=== PATIENT | male | born 1955 | race Caucasian/White ===

== ENCOUNTER 2024-04-12 11:45 | Observation (INO) ==
--- NOTE | 2024-03-14 13:57 | PAT Medication Instructions ---
Medication Instructions Date of Service March 14, 2024 Home Medications ascorbic acid (vitamin C) 500 mg tablet (Vitamin C) 500 mg PO QAM atorvastatin 80 mg tablet 80 mg PO UD glipizide 10 mg tablet 20 mg PO QAM lisinopril 20 mg tablet 20 mg PO QAM magnesium oxide 400 mg PO WK metformin 1,000 mg tablet 1,000 mg PO BID omega-3 acid ethyl esters 1 gram capsule (Lovaza) 2 g PO BID tramadol 50 mg tablet 50 mg PO BID PRN Pain vitamin B12 500 mcg-folic acid 400 mcg tablet 1 tab PO DAILY Continue as directed atorvastatin 80 mg tablet 80 mg PO UD STOP taking 2 weeks before surgery (or as soon as possible if surgery is within 2 weeks) omega-3 acid ethyl esters 1 gram capsule (Lovaza) 2 g PO BID DO NOT take the morning of surgery ascorbic acid (vitamin C) 500 mg tablet (Vitamin C) 500 mg PO QAM glipizide 10 mg tablet 20 mg PO QAM lisinopril 20 mg tablet 20 mg PO QAM magnesium oxide 400 mg PO WK metformin 1,000 mg tablet 1,000 mg PO BID vitamin B12 500 mcg-folic acid 400 mcg tablet 1 tab PO DAILY Take morning of surgery With a small sip of water, OTHERWISE NOTHING TO EAT OR DRINK AFTER MIDNIGHT: tramadol 50 mg tablet 50 mg PO BID PRN Pain (if needed) Take evening before surgery metformin 1,000 mg tablet 1,000 mg PO BID tramadol 50 mg tablet 50 mg PO BID PRN Pain (if needed) Other Notes If you have any questions please call us at [phone] or [phone] or [phone] or [phone]
--- NOTE | 2024-03-27 11:01 | Anesthesiology Consultation ---
Date of Service March 27, 2024 Assessment & Plan (1) Encounter for pre-operative examination: - check BSG am DOS. - awaiting patient reported upcoming PCP pre-operative evaluation 04/03/24, [facility] Jaylen Gómez. Chart Review Chart Review: Pending: Refer to Additional Notes / Consult section and Patient seen in Pre Admission Testing Teaching & Discussion Pre-Anesthesia Teaching/Discussion Notes: Instructed NPO after midnight before surgery, except medications with 15 cc of water. Medication instructions provided according to the PAT guidelines. History Surgery Operation Date: 04/10/24 09:05 Proposed Procedures p Left Total Shoulder Arthroplasty with - Aftab Malhotra MD s Possible Rotator Cuff Repair with [employer] Implant, Subacromial Decompression, Distal Clavicle Excision Biceps Tenodesis - Aftab Malhotra MD Height/Weight Height: 5 ft 5.5 in Weight: 80.9 kg Allergies Allergy/AdvReac Type Severity Reaction Status Date / Time No Known Allergies Allergy Verified 03/11/24 10:59 Medications Home Medications Medication Instructions Recorded Confirmed Last Taken ascorbic acid (vitamin C) 500 mg 500 mg PO QAM 03/11/24 03/11/24 Unknown tablet (Vitamin C) atorvastatin 80 mg tablet 80 mg PO UD 03/11/24 03/11/24 Unknown glipizide 10 mg tablet 20 mg PO QAM 03/11/24 03/11/24 Unknown lisinopril 20 mg tablet 20 mg PO QAM 03/11/24 03/11/24 Unknown magnesium oxide 400 mg PO WK 03/11/24 03/11/24 Unknown metformin 1,000 mg tablet 1,000 mg PO BID 03/11/24 03/11/24 Unknown omega-3 acid ethyl esters 1 gram 2 g PO BID 03/11/24 03/11/24 Unknown capsule (Lovaza) tramadol 50 mg tablet 50 mg PO BID PRN Pain 03/11/24 03/11/24 Unknown vitamin B12 500 mcg-folic acid 400 1 tab PO DAILY 03/11/24 03/11/24 Unknown mcg tablet Past Medical History Medical History (Updated 03/27/24 @ 11:12 by Kathie Stein PA-C) Arthritis of left shoulder Diabetes mellitus NIDDM Hx of renal calculi (2020) x2, had cysto/stent Hyperlipidemia Hypertension controlled, stable per pt Patient denies h/o stroke, seizures, heart attack, heart failure, blood clots/DVTs or blood transfusions. Exercise / Class Metabolic Activity III < 4 Walking/Shop/Light housework (denies chest discomfort or shortness of breath with usual activities) Past Surgical History Surgical History Hx of colonoscopy Hx of shoulder surgery (1993) left shoulder, torn rotator cuff S/P cystoscopy with ureteral stent placement (2020) - [facility] - dr. lopez in [place], [place] Past Anesthesia History No Hx of Anesthesia Complications and No Family Hx of Anesthesia Complications History of PONV No Hx of PONV and No Hx of Motion Sickness Social History Smoking Status: Never smoker Do You Dip or Chew Tobacco: No Hx Alcohol Use: No Hx Substance Use: No substance use type: does not use Review of Systems Snoring, denies witnessed apneas. Patient denies chest pain, shortness of breath, dyspnea on exertion, reflux, fever, chills, cough, wheezing, or palpitations. Physical Exam Vital Signs Vitals BP 152/90 P 68 TEMP 98.3 SP02 97% on RA RESP 18 Physical Patient resting comfortably in chair in no acute distress, alert and oriented, responding appropriately throughout visit Full cervical extension range of motion without pain TMD 3.5 finger breadths Mallampati Score 3 Dentition: intact, denies chipped or loose teeth, caps/crowns, implants or bridges Lungs: normal respiratory effort. Good air movement, clear throughout to ausc ultation, no adventitious breath sounds Cardiac: regular rate and rhythm, no murmurs noted Carotid arteries: negative bruit bilat Lab Results Anesthesia Preop Results Results Anesthesia Widget: WBC 5.65 K/ul (4.8-10.8) 03/27/24 Hgb 14.7 g/dl (14.0-18.0) 03/27/24 Hct 43.6 % (42.0-52.0) 03/27/24 Plt 275 K/uL (130-400) 03/27/24 Na 140 mmol/L (136-145) 03/27/24 K 3.9 mmol/L (3.5-5.1) 03/27/24 Cl 105 mmol/L (98-107) 03/27/24 CO2 27 mmol/L (21-32) 03/27/24 BUN 15 mg/dl (6-23) 03/27/24 Creat 0.93 mg/dl (0.6-1.4) 03/27/24 Glucose Level 139 mg/dl (70-99(Fasting)) H 03/27/24 PT 11.1 Seconds (9.0-12.0) 03/27/24 PTT 26 Seconds (21-31) 03/27/24 INR 1.0 (0.9-1.1) 03/27/24 HA1c 6.8 % (4.5-5.6) H 03/27/24 Urine Color Edgar 03/27/24 Urine Appearance Clear (Clear) 03/27/24 Urine pH 6.0 (4.5-7.5) 03/27/24 Urine Specific Munson 1.019 (1.000-1.030) 03/27/24 Urine Protein Trace (Negative) H 03/27/24 Urine Glucose (UA) Negative (Negative) 03/27/24 Urine Ketones Negative (Negative) 03/27/24 Urine Blood Trace (Negative) H 03/27/24 Urine Nitrite Negative (Negative) 03/27/24 Urine Bilirubin Negative (Negative) 03/27/24 Urine Urobilinogen Negative (Negative) 03/27/24 Urine Leukocyte Esterase Negative (Negative) 03/27/24 Urine WBC (Auto) 0-5 /hpf (0-5) 03/27/24 Urine RBC (Auto) 0-2 /hpf (0-2) 03/27/24 Urine Hyaline Casts (Auto) 0-2 /lpf (0-2) 03/27/24 Urine Epithelial Cells (Auto) 0-2 /hpf (0-2) 03/27/24 Urine Bacteria (Auto) None Seen (None Seen) 03/27/24 Blood Type O Positive 03/27/24 Antibody Screen NEGATIVE 03/27/24 Testing Electrocardiogram Date: 03/27/24 NSR, rate 68 bpm Chest X-Ray Date: 03/27/24 No acute chest disease.
--- NOTE | 2024-04-09 21:35 | History & Physical Report ---
Date of Service April 09, 2024 Assessment & Plan (1) Osteoarthritis of left glenohumeral joint: Plan: Patient has severe left shoulder glenohumeral osteoarthritis with bone loss. In addition has relatively minor tendinopathy of the rotator cuff post previous rotator cuff repair with reasonably good rotator cuff strength. Does have subacromial impingement however and arthritis of the AC joint contributing to impingement. Recommendation is at this time is subacromial decompression distal clavicle excision possible addition of a Regeneten bio inductive collagen implant to rotator cuff to reinforce tendon if tendinopathy identified. Total shoulder arthroplasty stemless versus stem depending on bone quality recommended. Biceps tenodesis recommended. (2) Osteoarthritis of left acromioclavicular joint: (3) Subacromial impingement of left shoulder: (4) History of repair of left rotator cuff: History of Present Illness Chief Complaint: Chronic left shoulder pain Primary Care Provider: NO PCP 69-year-old male with chronic left shoulder pain failed conservative management. History of prior successful rotator cuff surgery in the past. Patient denies headaches, sweats, fevers, chills, double vision, blurred vision, cough, sore throat, dysphagia, chest pain, sob, wheezing, n/v/d/c, numbness, tingling, fatigue, urinary symptoms, mood disorders. Allergies Allergy/AdvReac Type Severity Reaction Status Date / Time No Known Allergies Allergy Verified 03/11/24 10:59 Home Medications Medication Instructions Recorded Confirmed Type ascorbic acid (vitamin C) 500 mg 500 mg PO QAM 03/11/24 03/11/24 History tablet (Vitamin C) atorvastatin 80 mg tablet 80 mg PO UD 03/11/24 03/11/24 History glipizide 10 mg tablet 20 mg PO QAM 03/11/24 03/11/24 History lisinopril 20 mg tablet 20 mg PO QAM 03/11/24 03/11/24 History magnesium oxide 400 mg PO WK 03/11/24 03/11/24 History metformin 1,000 mg tablet 1,000 mg PO BID 03/11/24 03/11/24 History omega-3 acid ethyl esters 1 gram 2 g PO BID 03/11/24 03/11/24 History capsule (Lovaza) tramadol 50 mg tablet 50 mg PO BID PRN Pain 03/11/24 03/11/24 History vitamin B12 500 mcg-folic acid 400 1 tab PO DAILY 03/11/24 03/11/24 History mcg tablet Past Med/Surg History Problem List (Updated 04/09/24 @ 21:41 by Aftab Malhotra MD) History of repair of left rotator cuff Subacromial impingement of left shoulder Osteoarthritis of left acromioclavicular joint Osteoarthritis of left glenohumeral joint Encounter for pre-operative examination Medical History Hx of renal calculi (2020) x2, had cysto/stent Arthritis of left shoulder Hyperlipidemia Hypertension controlled, stable per pt Diabetes mellitus NIDDM Surgical History S/P cystoscopy with ureteral stent placement (2020) x2- [facility] - dr. lopez in [place], [place] Hx of colonoscopy Hx of shoulder surgery (1993) left shoulder, torn rotator cuff Social History Smoking Status: Never smoker Second Hand Exposure: No; Do You Dip or Chew Tobacco: No; Tobacco Cessation Education Requested by Patient: No Hx Alcohol Use: No Hx Substance Use: No Preferred Language: Japanese Communication Ability: Effective Is Analyst Required: No Beliefs That Will Affect Care: None Current Living Situation: Alone Other Information That Helps Us Care for You: No Feels Safe at Home: Yes Safety Concerns: Feels Safe At This Time Assistive Devices: Glasses Review of Systems All systems reviewed & are unremarkable except as noted in HPI & below Physical Exam Constitutional: WD/WN, vitals as above Respiratory: normal respiratory effort; no respiratory distress Cardiovascular: Rate/Rhythm: regular rate and regular rhythm Musculoskeletal: Left shoulder with some atrophy abnormal rhythm glenohumeral crepitation [id number] severe tenderness over the AC joint and anterior glenoid and anterior-inferior acromion with positive Speed test positive positive Juarez cross-body and Neer test with negative belly press test with good subscapularis tendon strength. 0 degrees external rotation 30 degrees internal rotation int ernal Tatian posteriorly to buttock barely S1 area flexion 80 degrees abduction 70 degrees with substantial loss of range of motion of the shoulder. Mild decrease strength and normal distal neurological exam. Normal circulation exam. Skin: no rashes, warm and dry Neurologic: normal touch/pain/proprioception Psychiatric: A+Ox3, euthymic affect Results & Data Diagnostic Findings MRI from a few years ago demonstrates intact rotator cuff repair with minor tendinopathy only. Current radiographs demonstrate hypertrophic AC joint osteoarthritis some spurring on the anterior-inferior acromion causing subacromial impingement and severe glenohumeral osteoarthritis [id number] with subchondral cystic changes and some bone loss glenohumeral joint.
[~2024-04-12 11:45] MED LIST: BUPIVACAINE 0.5 % 5 MG/1 ML PF 10ML VIAL ONE
--- NOTE | 2024-04-12 12:17 | History & Physical Bridge Note ---
Date of Service April 12, 2024 History & Physical Bridge Note I have examined the patient, reviewed the History & Physical and in the interval since the performance of the History & Physical I have noted the following changes of clinical significance: no changes noted
[2024-04-12] MEDS: ACETAMINOPHEN 500 MG TAB PO SCH ×3 (12:18→22:20)
[2024-04-12] MEDS: FAMOTIDINE 20 MG TAB PO SCH ×2 (12:19→21:28)
[2024-04-12] MEDS: CeleBREX 200 MG CAP PO SCH ×2 (12:19→21:28)
[2024-04-12] MEDS: GABAPENTIN 300 MG CAP PO SCH ×2 (12:19→21:28)
[2024-04-12] MEDS: METOCLOPRAMIDE HCL 10 MG TABLET PO SCH ×2 (12:19→21:28)
[2024-04-12] MEDS: LR 60ML/HR IV SCH ×2 (12:20→21:28)
[2024-04-12] MEDS: LR 15ML/HR IV SCH ×2 (12:32→21:28)
[2024-04-12] MEDS ORDERED: fentaNYL citrate PF 100 MCG/2 ML VIAL ONE ×2 (13:09→17:36)
[2024-04-12] MEDS ORDERED: LIDOCAINE 2% 2 ML VIAL/AMP(20MG/ML) INFIL ONE (13:09)
[2024-04-12] MEDS ORDERED: ONDANSETRON INJ 2 MG/ML 2 ML VIAL ONE (13:09)
[2024-04-12] MEDS ORDERED: MIDAZOLAM HCL 1 MG/ML 2ML VIAL ONE (13:09)
[2024-04-12] MEDS ORDERED: ROCURONIUM BROMIDE 10 MG/ML 5 ML VIAL IV ONE ×2 (13:09→17:47)
[2024-04-12] MEDS ORDERED: PROPOFOL IV EMULSION 10 MG/ML 20 ML VIAL IV ONE (13:09)
[2024-04-12] MEDS ORDERED: ePHEDrine sulfate 50 MG/ML AMP IV PRN (13:53)
[2024-04-12] MEDS ORDERED: HYDROmorphone INJ 2 MG/ML SYR/VIAL IV PRN (13:53)
[2024-04-12] MEDS ORDERED: ONDANSETRON INJ 2 MG/ML 2 ML VIAL IV PRN ×2 (13:53→21:17)
[2024-04-12] MEDS ORDERED: PROMETHAZINE HCL 6.25 MG in SODIUM CHLORIDE 0.9% 50 ML IV PRN (13:53)
[2024-04-12] MEDS ORDERED: ATROPINE SULFATE 0.1 MG/ML 10ML SYR IV PRN (13:53)
[2024-04-12] MEDS: TRANEXAMIC ACID 1,000 MG **IV Pre-op IV SCH ×2 (15:16→21:27)
[2024-04-12] MEDS: ceFAZolin 2000MG 2,000 MG/15 ML SYR IV SCH ×2 (16:20→21:28)
[2024-04-12] MEDS ORDERED: PHENYLEPHRINE 100MCG/ML 5ML SYR ONE (16:56)
[2024-04-12] MEDS: EpINEphrine HCL INJ 1 MG/ML 1ML SYRINGE IR ONE (17:36)
[2024-04-12] MEDS: TRANEXAMIC ACID 1,000 MG **IV Intra-op IV SCH ×2 (19:03→21:27)
[2024-04-12] MEDS ORDERED: SUGAMMADEX SODIUM 200 MG/2 ML VIAL IV ONE (19:12)
[2024-04-12] MEDS ORDERED: hydrALAZINE HCL 20 MG/ML VIAL ONE (19:15)
[2024-04-12] MEDS: BUPIVACAINE/EPINEPHRINE 0.5% MPF 1:200,000 30 ML VIAL ONE (20:34)
[2024-04-12] MEDS: fentaNYL citrate PF 100 MCG/2 ML VIAL IV PRN (20:40)
--- NOTE | 2024-04-12 20:58 | Operative Report ---
Post Operative Report Pre & Post Diagnosis Operation Date: 04/12/24 13:40 Pre-Op Diagnosis: Osteoarthritis of left glenohumeral joint; Osteoarthritis of left acromioclavicular joint; Subacromial impingement of left shoulder; History of repair of left rotator cuff. Posterior capsular calcifications and loose bodies. Post-Op Diagnosis: Osteoarthritis of left glenohumeral joint; Osteoarthritis of left acromioclavicular joint; Subacromial impingement of left shoulder; History of repair of left rotator cuff, intact rotator cuff repair, biceps tendinopathy, multiple large loose bodies posterior capsule. I identified the patient and participated in the time-out.: Yes Procedure Operation Date: 04/12/24 13:40 Actual Procedures p Left anatomic stemless total Shoulder Arthroplasty with(Left) - Aftab Malhotra MD s Regenenten bio inductive collagen implant augmentation of subscapularis repair, open subacromial Decompression(acromioplasty), Distal Clavicle Excision, biceps Tenodesis, removal multiple large loose bodies. (Left) - Aftab Malhotra MD Surgeon Aftab Malhotra MD Dampproofer Walter CINTRON Estimated Blood Loss 125 Findings Consistent with Post-Op Diagnosis Specimens Humeral head and distal clavicle Drains 2 Hemovac Anesthesia Type General Regional Complications none Disposition Disposition: Recovery Room Indications 69-year-old male with very severe osteoarthritis of the left shoulder with chronic pain decreased motion and dysfunction. History of rotator cuff repair in the past. X-rays and MRI demonstrates significant wear appears to be a typeA pattern with primarily central wear but down to the base of the coracoid with significant widening of the glenoid and osteophytes around the glenoid and calcifications in the posterior capsule and loose bodies in the joint. Patient also has symptomatic hypertrophic AC joint osteoarthritis which is [id number] and he has a substantial spur on the anterior acromion causing subacromial impingement. Description of Procedure Patient was taken to the operating room anesthetized under regional block and general anesthetic. Patient was placed in a 40 degree beach chair position with a foam headrest protective eyewear all extremities padded teds and SCDs were placed. A towel roll was placed on the medial border of the scapula of the left upper extremity. The arm was examined and range of motion demonstrated 80 degrees maximum flexion and 60 degrees maximum abduction and 0 degrees external rotation.. An anterior deltopectoral approach was performed. Longitudinal incision was made in deltopectoral interval. Skin incised sharply and subcutaneous flaps elevated. The deltopectoral interval was identified. The cephalic vein demonstrated normal-appearing vein with minor crossing veins that were tied off and cauterized. The cephalic vein was retracted laterally with the deltoid. The upper centimeter of the pectoralis was released for inferior exposure. Biceps tendon demonstrated tenosynovitis at the pectoral level but proximally there was widening and marked tendinopathy intra-articularly. The biceps was tenodesed to the pectoralis tendon using #2 FiberWire [id number] sutures. Proximal biceps was resected. Rotator cuff findings demonstrated well-healed prior rotator cuff repair but there was subacromial impingement from a substantial spur and anterior acromion. The circumflex vessels were tied off with silk ties and divided laterally. The subscapularis muscle fibers were split at the level of circumflex vessels and released off the inferior capsule with a Kitner elevator and then a blunt Hohmann retractor was placed protect the axillary nerve. The rotator interval was released down to the level of the glenoid. The subscapularis tendon was taken down with a transtendinous incision leaving a cuff of tissue for repair on the lesser tuberosity. the humeral head findings demonstrated flattening of the humeral head with a large posterior osteophyte that was hinged on the widened posterior glenoid. There were large inferior anterior posterior and superior osteophytes.. The osteophytes were resected using an artist chisel and rongeur. The inferior capsule was released off the bone subperiosteally using a Walker elevator. A #1 Vicryl traction suture was placed into the free edge of the subscapularis tendon. A Fukuda retractor was placed into the joint. Capsule was released with Schulz scissors down to the glenoid and off of the anterior glenoid to the rotator interval which was released to meet the capsular release creating a 360 degree release of subscapularis tendon. I also released the coracohumeral ligament and despite all these releases there was still restricted mobility of the tendon to some extent but improved mobility from preop status which was markedly contracted. An anterior Bankart retractor was placed. The glenoid and labral findings demonstrated 100% eburnated bone with circumferential degeneration of the labrum and in the posterior joint there were large calcifications and loose bodies. At this point I had to go ahead and do the humeral preparation due to the shoulder being too tight to do appropriate releases at this time. Humeral head was exposed with extension and external rotation. The oscillating saw was used to make an anatomic neck cut removing the articular surface. All the circumferential remaining osteophytes were trimmed with a rongeur. The humerus was sized for a 2 nucleus and a 52 x 21 simplicity humeral head. The bone was assessed with a thumb press test and there was solid cancellous bone. The guide for the nucleus was placed centrally and then the guidepin was placed. The surface reamer was used followed by the central drill for the nucleus. The trial nucleus was inserted and the cut protector was placed. The humerus was retracted posterior to the glenoid . A Tornier retractor ,Hohmann retractors as well as an anterior Bankart retractor were placed. At this time I did an anterior subperiosteal release on the glenoid and used a Walker elevator to aid in the release and then reposition the Bankart retractor appropriately. Then I did not inferior release on the glenoid with electrocautery on bone and a Walker elevator. Posteriorly I used angled curettes and cokers to grasp the large loose bodies and free up the large Deposits in the Posterior Capsule without Taking down Any the Posterior Capsule to in Order to Help Preserve Stability. Several of the glenoid osteophytes were resected. The glenoid was fully exposed . The Tornier Cortiloc glenoid was used. The 40 radius large size was chosen. The central drill hole was made followed by the reamer for the glenoid followed by widening the central hole for the central post. The guide for the peripheral drill holes was placed and the drill holes were made. The trial reduction performed with stable fixation. The trial removed and the glenoid copiously irrigated with pulsed saline solution. The drill holes were packed with epinephrine-soaked tampons. The Palacos G cement was vacuum mixed. The Tornier large 40 radius pegged Cortiloc glenoid component was then cemented in position after drying the glenoid after removal of the tampons. Fixation was excellent. All excess cement was cleared. When the cement cured we moved onto removing the cut protector doing a trial reduction with a 52 x 21 mm soft tissue balancing humeral head trial. Stability was assessed and was stable. Soft tissue tension on the subscapularis tendon was satisfactory. The trial components of the humeral head were removed and the 3 drill holes were made in the harder bone in the biceps groove area and transosseous #5 FiberWire sutures were placed. Then the humeral cut surface was reexposed with retractors and after irrigation the size 2 nucleus was impacted leaving it slightly proud until the 52 x 21 mm soft tissue balancing simplicity humeral head was placed into the nucleus and then both were impacted into the humerus with a tight press-fit. The humerus was reduced to the glenoid. The stability was verified. The subscapularis tendon was repaired in 2 [id number] #2 FiberWire sutures. Lateral row fixation was performed with interrupted [id number] #2 FiberWire sutures and rotator interval was closed with #2 FiberWire sutures. Range of motion demonstrated 90 degrees flexion and abduction and 0 degrees external rotation without tension on repair. The pectoralis was repaired with [id number] #2 FiberWire sutures placing sutures back through the biceps tendon to reinforce the tenodesis. A longitudinal incision was made over the superior clavicle starting 1 cm medial to the clavicle extending to the lateral acromion process. Skin was incised sharply subcutaneous bleeders were cauterized and subtendinous flaps were elevated off the fascia. A longitudinal incision was made across the AC joint and anterior acromion and the deltoid was subperiosteally dissected off of the distal clavicle and anterior acromion and the CA ligament was released off the large spur on the anterior acromion. Oscillating saw was used to resect 1 cm distal clavicle. The oscillating saw was used to resect the spur on the anterior acromion and the undersurface was rasped smoothed with a Tiemann rasp. The ripstop suture with Vicryl was placed into the deltoid followed by anatomic repair with transosseous sutures through the anterior acromion using #2 FiberWire [id number] sutures. Repair is secure with passive range of motion. Attention was taken back to the deltopectoral wound and this was irrigated further with saline and Xperience and the AC joint incision wound was also irrigated with Xperience. 2 Hemovac drains were placed. The deltopectoral interval was repaired with [id number] #1 Vicryl sutures. The subcutaneous tissue was repaired in both incisions with 2-0 Vicryl sutures and the skin was closed with surgical jason. Sterile dressings were applied and a sling immobilizer. The patient tolerated the procedure well. Walter CINTRON acted as temporary administrative assistant throughout the procedure. He functioned as temporary administrative assistant assisting in all aspects of the procedure including patient positioning prepping draping, arm positioning, soft tissue retraction,, instrument management, subcutaneous and skin closure and postop care the patient as well. I attest to the content of the Intraoperative Record and any orders documented therein. Any exceptions are noted below.
[2024-04-12] MEDS ORDERED: ALUMINUM/MAGNESIUM SUSP 30 ML UDC PO PRN (21:17)
[2024-04-12] MEDS ORDERED: HYDROmorphone INJ 0.5 MG/0.5 ML SYR IV PRN (21:17)
[2024-04-12] MEDS ORDERED: METOCLOPRAMIDE HCL INJ 5 MG/ML 2 ML VIAL IV PRN (21:17)
[2024-04-12] MEDS ORDERED: KETOROLAC TROMETHAMINE 15 MG/ML VIAL IV PRN (21:17)
[2024-04-12] MEDS ORDERED: TAMSULOSIN HCL 0.4 MG CAP PO PRN (21:17)
[2024-04-12] MEDS ORDERED: diphenhydrAMINE Capsule 25 MG CAP PO PRN (21:17)
[2024-04-12] MEDS ORDERED: bisacodyL 10 MG SUPP PR PRN (21:17)
[2024-04-12] MEDS ORDERED: PHARMACY GLYCEMIC MGMT CONSULT PRN (21:17)
[2024-04-12] MEDS ORDERED: MAGNESIUM HYDROXIDE SUSP 30 ML UDC PO PRN (21:17)
[2024-04-12] MEDS ORDERED: NALOXONE HCL 0.4 MG/1 ML VIAL/CARP IV PRN (21:17)
[2024-04-12] MEDS ORDERED: DEXTROSE 50% 50 ML SYRINGE IV PRN (22:00)
[2024-04-12] MEDS ORDERED: CARBOHYDRATES FOR HYPOGLYCEMIA PO PRN (22:00)
[2024-04-12] MEDS ORDERED: GLUCOSE 10 TAB/TUBE PO PRN (22:00)
[2024-04-12] MEDS ORDERED: GLUCAGON FOR INJ 1 MG VIAL SQ PRN (22:00)
[2024-04-12] MEDS ORDERED: GLUCOSE 40% GEL 15 GM TUBE PO PRN (22:00)
[2024-04-12] MEDS: DOCUSATE SODIUM 100 MG CAP PO SCH (22:25)
[2024-04-12] MEDS: OMEGA-3 (PURIFIED FISH OIL) 1 GM CAP PO SCH (22:26)
[2024-04-12] MEDS: oxyCODONE HCL IR 5 MG TAB (IMMEDIATE RELEASE) PO PRN (22:26)
[2024-04-12] MEDS: ASPIRIN 81 MG ECTAB PO SCH (22:26)
[2024-04-12] MEDS: SENNA 8.6 MG TAB PO SCH (22:26)
[2024-04-12] MEDS: ATORVASTATIN 40 MG TAB PO SCH (22:26)
--- NOTE | 2024-04-12 23:07 | Hospitalist Consultation ---
Date of Consultation April 12, 2024 Assessment & Plan (1) Osteoarthritis of left glenohumeral joint: (2) Osteoarthritis of left acromioclavicular joint: (3) Subacromial impingement of left shoulder: (4) History of repair of left rotator cuff: (5) Hyperlipidemia: (6) Hypertension: (7) Diabetes mellitus: Plan 69 year old male with PMHx of HLD, HTN, T2DM, and OA of left AC/glenohumeral joints presenting for L TSA: S/P L TSA: POD#0 Post-op surgical management per primary team. PRN Oxycodone, Dilaudid for pain control HTN: Post-op BP initially elevated, now improving - continue to monitor Continue Lisinopril 20mg daily HLD: Continue Atorvastatin 80 mg 3x/week Continue fish oil supplement T2DM: Hold home Glipizide, Metformin BSG checks ACHS, pharmacy glycemic consult ordered for insulin management Diet: CC VTE ppx: SCDs Supervising Physician Co-Signing Physician Notes Patient seen and examined, chart reviewed, case discussed with Dr. Perla and I agree with the assessment and plan as above. Patient is s/p left shoulder arthroplasty. No complications. Home medications have been resumed by the primary team. Remainder of plan as above History of Present Illness Reason for Consultation: post op medical management Attending Physician: Aftab Malhotra MD History of Present Illness 69 year old male with PMHx of HLD, HTN, T2DM, and OA of left AC/glenohumeral joints presents for L TSA, hospitalist service consulted for med management. Patient POD#0, reports pain adequately controlled. Denies SOB, chest pain, palpitations. Allergies Allergy/AdvReac Type Severity Reaction Status Date / Time No Known Allergies Allergy Verified 04/12/24 12:01 Home Medications Medication Instructions Recorded Confirmed Type ascorbic acid (vitamin C) 500 mg 500 mg PO QAM 03/11/24 04/12/24 History tablet (Vitamin C) atorvastatin 80 mg tablet 80 mg PO UD 03/11/24 04/12/24 History glipizide 10 mg tablet 20 mg PO QAM 03/11/24 04/12/24 History lisinopril 20 mg tablet 20 mg PO QAM 03/11/24 04/12/24 History magnesium oxide 400 mg PO WK 03/11/24 04/12/24 History metformin 1,000 mg tablet 1,000 mg PO BID 03/11/24 04/12/24 History omega-3 acid ethyl esters 1 gram 2 g PO BID 03/11/24 04/12/24 History capsule (Lovaza) vitamin B12 500 mcg-folic acid 400 1 tab PO DAILY 03/11/24 04/12/24 History mcg tablet acetaminophen 500 mg tablet 1,000 mg (2 x 500 mg) PO Q8H fever 04/12/24 Rx (Tylenol Extra Strength) or pain #90 tabs aspirin 81 mg tablet,delayed 81 mg PO BID #60 tabs 04/12/24 Rx release cefadroxil 500 mg capsule 500 mg PO Q12H #28 caps 04/12/24 Rx celecoxib 200 mg capsule (Celebrex) 200 mg PO Q12H #60 caps 04/12/24 Rx oxycodone 5 mg tablet 5 mg PO Q4H PRN pain #20 tabs 04/12/24 Rx Patient History Medical History Hx of renal calculi (2020) x2, had cysto/stent Arthritis of left shoulder Hyperlipidemia Hypertension controlled, stable per pt Diabetes mellitus NIDDM Surgical History S/P cystoscopy with ureteral stent placement (2020) x2- [facility] - dr. lopez in [place], [place] Hx of colonoscopy Hx of shoulder surgery (1993) left shoulder, torn rotator cuff Social History Smoking Status: Never smoker Second Hand Exposure: No; Do You Dip or Chew Tobacco: No; Tobacco Cessation Education Requested by Patient: No Hx Alcohol Use: No Hx Substance Use: No Preferred Language: Romansh Communication Ability: Effective [place] Hand Required: No Beliefs That Will Affect Care: None Current Living Situation: Alone Other Information That Helps Us Care for You: No Feels Safe at Home: Yes Safety Concerns: Feels Safe At This Time Assistive Devices: Glasses Review of Systems Review of Systems: as per HPI Physical Exam Physical Exam: Constitutional: no acute distress HEENT: NCAT, no conjunctival injection CV: RRR, extremities well-perfused, no LE edema Resp: Lungs CTABL, no increased work of breathing GI: nondistended MSK: no gross deformities, left shoulder with clean dressin g Skin: warm, dry, no rash appreciated Neuro: alert, oriented, no focal neurologic deficit appreciated Results & Data Results & Data Vital Signs (Past 12 Hours) Vital Signs Temp Pulse Pulse Resp BP Pulse Ox O2 Del Method 04/12/24 22:27 36.8 C 90 20 126/74 94 Room Air 04/12/24 22:11 36.8 C 99 H 18 154/76 H 94 Room Air 04/12/24 21:40 36.9 C 95 H 18 154/69 H 94 Room Air 04/12/24 21:25 37.0 C 89 18 144/72 H 93 Room Air 04/12/24 21:05 36.9 C 86 20 150/74 H 94 Room Air 04/12/24 20:55 86 18 137/71 94 Room Air 04/12/24 20:45 85 16 149/73 H 92 Room Air 04/12/24 20:35 36 C L 91 H 17 127/92 93 Room Air 04/12/24 12:06 36.6 C 74 20 207/94 H 97 Room Air Resident Activity Tracking Resident Involvement: Resident Care Provided Care Provided: Adult Hospital Medicine
--- NOTE | 2024-04-12 23:12 | XRay Report ---
Exam(s): XR LEFT SHOULDER, 2+ views EXAM: XR Left Shoulder Complete, 2 or More Views CLINICAL HISTORY: Post shoulder surgery. TECHNIQUE: Two or more views of the left shoulder. COMPARISON: No relevant prior studies available. FINDINGS: Bones/joints: The left shoulder arthroplasty noted. No acute fracture or abnormal alignment identified. Soft tissue drains noted about the shoulder. Soft tissues: Superficial skin jason identified. IMPRESSION: Left shoulder arthroplasty without significant postoperative abnormality. Electronically signed by: Elia Roger MD 04/12/24 23:11 PM
[2024-04-12 23:16] VITALS: RESP 18
[2024-04-13] MEDS ORDERED: ceFAZolin 2000MG 2,000 MG/15 ML SYR IV SCH
[2024-04-13] MEDS: ceFAZolin 1000MG 1,000 MG/7.5 ML SYR IV SCH (00:08)
[2024-04-13 00:10] VITALS: O2SAT 94
[2024-04-13] MEDS: TRANEXAMIC ACID / 0.7% NACL 1,000 MG/100 ML BAG IV SCH (01:57)
[2024-04-13 07:03] LABS: Basophils # (auto) 0.05 K/uL (0.00-0.20); Basophils % (auto) 0.5 %; Hemoglobin 12.5 g/dl (14.0-18.0); Immature Granulocytes # (auto) 0.06 K/uL (0.01-0.20); Immature Granulocytes % (auto) 0.6 %; Lymphocytes # (auto) 1.28 K/uL (1.20-3.40); Lymphocytes % (auto) 11.8 %; Mean Corpuscular Hgb Conc 34.7 g/dL (32.0-36.0); Mean Corpuscular Volume 80.7 fL (80.0-100.0); Monocytes # (auto) 0.95 K/uL (0.11-0.59); Monocytes % (auto) 8.8 %; Neutrophils # (auto) 8.47 K/uL (1.40-6.50); Neutrophils % (auto) 78.3 %; Platelet Count 258 K/uL (130-400); RDW Standard Deviation 37.6 fL (36.4-46.3); Red Blood Count 4.46 M/uL (4.70-6.10); White Blood Count 10.81 K/ul (4.8-10.8)
[2024-04-13 07:25] LABS: BUN Creatinine Ratio 18.6 (10-20); Creatinine Clr Calc Pharmacy 70.2 ml/min; Potassium 4.1 mmol/L (3.5-5.1)
[2024-04-13] MEDS ORDERED: NovoLIN-N (NPH) PER UNIT CHARGE SQ SCH (07:30)
[2024-04-13] MEDS: INSULIN ASPART PER UNIT CHARGE SC SCH (08:21)
[2024-04-13] MEDS: LANTUS PER UNIT CHARGE SC ONE (08:21)
[2024-04-13] MEDS: dexAMETHasone 10 MG in SYRINGE 0 ML IV SCH (08:23)
[2024-04-13] MEDS: lisinopril 20 MG TAB PO SCH (08:24)
[2024-04-13] MEDS: FOLIC ACID 400 MCG TAB PO SCH (08:25)
[2024-04-13] MEDS: MULTIVITAMIN TAB PO SCH (08:25)
[2024-04-13] MEDS: CYANOCOBALAMIN (B-12) 500 MCG TABLET PO SCH (08:25)
[2024-04-13] MEDS: ASCORBIC ACID 500 MG TAB PO SCH (08:25)
[2024-04-13] MEDS ORDERED: MAGNESIUM OXIDE 400 MG TAB PO SCH (09:00)
[2024-04-13] MEDS ORDERED: glipiZIDE 5 MG TAB PO SCH (09:00)
[2024-04-13] MEDS ORDERED: NON-FORMULARY MEDICATION (Vitamin B12-Folic Acid 500-400 mcg Tablet) PO SCH (09:00)
[2024-04-13 09:19] VITALS: PULSE 76; TEMP 98.2
--- NOTE | 2024-04-13 10:20 | Orthopedic Progress Note ---
Date of Service April 13, 2024 Assessment & Plan (1) Osteoarthritis of left glenohumeral joint: Plan: Patient has severe left shoulder glenohumeral osteoarthritis with bone loss. In addition has relatively minor tendinopathy of the rotator cuff post previous rotator cuff repair with reasonably good rotator cuff strength. Does have subacromial impingement however and arthritis of the AC joint contributing to impingement. Recommendation is at this time is subacromial decompression distal clavicle excision possible addition of a Regeneten bio inductive collagen implant to rotator cuff to reinforce tendon if tendinopathy identified. Total shoulder arthroplasty stemless versus stem depending on bone quality recommended. Biceps tenodesis recommended. Postop day 1 total shoulder arthroplasty subacromial decompression distal clavicle excision biceps tenodesis. Discussed surgical procedure at length and range of motion restrictions postop to protect repair. Patient can have Hemovac discontinued and be discharged home today and start physical therapy next week. (2) Osteoarthritis of left acromioclavicular joint: (3) Subacromial impingement of left shoulder: (4) History of repair of left rotator cuff: Admission and Anticipated Discharge Date Admission Date: April 12, 2024 Subjective No pain at all this morning feels well Review of Systems Review of Systems: No chest pain shortness of breath, all noncontributory Physical Exam Musculoskeletal: Still some thumb numbness, normal circulation and hand, dressing intact, sling in place. Results & Data Vital Signs (Past 12 Hours) Vital Signs Temp Pulse Pulse Resp BP Pulse Ox O2 Del Method 04/13/24 09:18 36.8 C 76 18 136/68 94 Room Air 04/13/24 03:30 37.3 C 93 H 18 136/70 94 Room Air 04/13/24 00:09 37.0 C 92 H 18 125/69 94 Room Air 04/12/24 23:14 37.0 C 81 18 140/71 96 Room Air 04/12/24 22:27 36.8 C 90 20 126/74 94 Room Air Diagnostic Findings Well aligned left stemless anatomic total shoulder replacement with evidence of distal clavicle excision and subacromial decompression as well.
--- NOTE | 2024-04-13 11:34 | Communication Note ---
Date of Service: April 13, 2024 69 y/o postop from L shoulder replacement, was planned for discharge today Called to bedside for profuse bleeding from drain sites - drains had just been pulled Mr. Ordonez is feeling fine - no arm / hand / shoulder pain, no dyspnea lightheadedness or chest pain He's not on any blood thinner except bid ASA 81 for DVT ppx, no history of bleeding problems with surgery VS normal Exam - L shoulder visible jason intact without bleeding/drainage, covered in pressure wrap already starting to saturate dressing. L hand forearm warm/wp and 2+ radial pulse Lungs CTAB heart reg no mrg Alert and oriented Reviewed AM labs - CBC BMP unremarkable coags normal early March A/P: Excessive postoperative bleeding - may have been clogged hemovac drain resu lting in hematoma that suddenly evacuated, ongoing bleeding also possible Ortho PA called back recommended continue compression, sandbag (not available) or ice Discussed with nursing staff - continue above and ordered CBC, PT/PTT and Type and Screen, held aspirin and ketorolac Not suitable for discharge right now, continue to monitor
[2024-04-13 11:35] VITALS: BP 121/64
[2024-04-13 12:10] LABS: Hematocrit (blood only) 36.6 % (42.0-52.0); Hemoglobin 12.7 g/dl (14.0-18.0); Mean Corpuscular Hemoglobin 28.2 pg (25.0-34.0); Mean Corpuscular Hgb Conc 34.7 g/dL (32.0-36.0); Mean Corpuscular Volume 81.2 fL (80.0-100.0); Mean Platelet Volume 10.1 fL (9.4-12.4); Platelet Count 288 K/uL (130-400); RDW Coefficient of Variation 13.2 % (11.5-14.5); RDW Standard Deviation 38.3 fL (36.4-46.3); Red Blood Count 4.51 M/uL (4.70-6.10); White Blood Count 12.43 K/ul (4.8-10.8)
[2024-04-13 12:32] LABS: INR 1.1 (0.9-1.1); Partial Thromboplastin Time 26 Seconds (21-31); Prothrombin Time 11.9 Seconds (9.0-12.0)
--- NOTE | 2024-04-13 13:52 | Pharmacy Report ---
Pharmacy Glycemic Short Note 2 - Date of Service April 13, 2024 - Glycemic Short BSG Results (Last 24 hours): 04/12/24 04/13/24 04/13/24 20:40 06:30 07:29 Glucose 155 H POC Glucose 165 H 173 H OUTPATIENT ANTIDIABETIC REGIMEN: * metformin 1000 mg PO BIDM * Glipizide 20 mg PO daily HbA1c: 6.8% (03/27/24) ASSESSMENT: * BB is a 69 year old male POD #1 s/p left total shoulder arthroplasty * No steroids intraoperatively, but ordered one-time dose of dexamethasone 10 mg IV this morning * Will give one-time dose of basal insulin to prevent steroid-induced hyperglycemia * Of note, blood sugar of 267 mg/dL was obtained after patient ate lunch PLAN FOR INPATIENT GLYCEMIC CONTROL: * Hold outpatient oral diabetes medications * Basal insulin * Lantus 15 units SC x 1 w/ IV dexamethasone * Bolus insulin * NovoLog per scale ACHS or Q6hrs while NPO * Goal Range: Low 110 mg/dL - High 140 mg/dL * Correction Factor: 25 mg/dL/unit * Nutritional / Prandial insulin per carb ratio of 1 unit per 8 grams CHO consumed
--- NOTE | 2024-04-13 19:16 | Billing Data ---
Date of Service April 13, 2024 Coding Level of Care Code 46142 SUB INP/OBS CARE MIN
--- NOTE | 2024-04-13 19:46 | Billing Data ---
Date of Service April 13, 2024 Coding Level of Care Code 32036 IN/OBS CONSULT LVL 3,45M
[2024-04-13] MEDS ORDERED: metFORMIN HCL 500 MG TAB PO SCH (21:00)
--- NOTE | 2024-04-16 14:46 | Anesthesiology Progress Note ---
Date of Service April 16, 2024 Anesthesia Post Procedure Pain Intensity Left Shoulder: Pain Intensity: 4 Transfer of Care Handoff Completed per policy Notes Mental Status: alert / awake / arousable and participated in evaluation Patient Amnestic to Procedure: Yes Nausea / Vomiting: adequately controlled Pain: adequately controlled Airway Patency, RR, SpO2: stable & adequate BP & HR: stable & adequate Hydration State: stable & adequate Anesthetic Complications: no major complications apparent and Pt Satisfied with anesthetic care
[2024-04-17] MEDS ORDERED: MAGNESIUM OXIDE 400 MG TAB PO SCH (09:00)
== END 2024-04-13 15:45 | disposition home or self-care (01) ==
LOC: ASU 11:45 → 3W 11:45